=== PATIENT | female | born 1990 | race Hispanic/Latino ===

== ENCOUNTER 2017-11-23 17:40 | Outpatient (CLI) | payer MEDICAID ==
[2017-11-23 18:18] VITALS: BP 117/69
[2017-11-23] MEDS ORDERED: LACTATED RINGERS 1,000 ML IV ONE (18:30)
[2017-11-23] MEDS ORDERED: LACTATED RINGERS 1,000 ML ONE (19:16)
[2017-11-23 19:28] LABS: Bacteria,Urine 1+ /HPF (Negative); Bilirubin,Urine NEG (Negative); Blood,Urine NEG (Negative); Color,Urine Amber (Yellow); Mucus,Urine 3+ /HPF
== END 2017-11-23 21:30 | disposition home or self-care (01) ==
LOC: TRG 17:40
PROVIDERS: ATTEND Obstetrics & Gynecology
DX: O47.02 False labor before 37 completed weeks of gestation, second trimester (principal); Z3A.26 26 weeks gestation of pregnancy
CPT/HCPCS: 59025; 81001; 96360; J7120

== ENCOUNTER 2018-01-27 13:30 | Outpatient (CLI) | payer MEDICAID ==
--- NOTE | 2018-01-27 14:24 | Event Note ---
Date: 01/27/18 Patient presented to triage with c/o over leaking that occurred today. She reports uncontrollable loss of fluid saturating underwear and shorts. She denies any additional leaking since. Spec exam done - no pooling or obvious signs of SROM. Fern negative. Nitrazine negative. Patient has odor of urine. Teaching provided. Advices to keep next appointment and call office with any questions or concerns.
[2018-01-27 14:27] VITALS: BP 114/60
== END 2018-01-27 14:30 | disposition home or self-care (01) ==
LOC: TRG 13:30
PROVIDERS: ATTEND Obstetrics & Gynecology
DX: O47.03 False labor before 37 completed weeks of gestation, third trimester (principal); Z3A.35 35 weeks gestation of pregnancy
CPT/HCPCS: 59025

== ENCOUNTER 2018-02-15 11:28 | Outpatient (CLI) | payer MEDICAID ==
[2018-02-15 12:55] VITALS: BP 125/72
[2018-02-15 13:03] LABS: Amorphous Crystals,Urine Few; Bacteria,Urine 2+ /HPF (Negative); Bilirubin,Urine NEG (Negative); Blood,Urine SM (Negative); Color,Urine Yellow (Yellow); Mucus,Urine FEW /HPF; Protein,Urine <15 mg/dL mg/dL (Negative); Urobilinogen,Urine < 2.0 mg/dL (<2.0)
[2018-02-15 13:06] LABS: Hematocrit 35.9 % (30.3-42.9); Hemoglobin 12.3 gm/dl (10.1-14.3); Mean Corpuscular HGB Conc 34 % (30-34); Mean Corpuscular Hemoglobin 32 pg (28-32); Mean Corpuscular Volume 95 fl (79-97); Platelet Count 269 K/mm3 (140-440); Red Blood Count 3.79 M/mm3 (3.65-5.03); Red Cell Distribution Width 14.6 % (13.2-15.2)
[2018-02-15 13:23] LABS: Alanine Aminotransferase 12 units/L (7-56); Uric Acid 5.3 mg/dL (3.5-7.6)
--- NOTE | 2018-02-15 14:35 | Ultrasound Report ---
ULTRASOUND OB LIMITED History: DARIEL Technique: Transabdominal ultrasound with Doppler interrogation. Gestation: Single Position: Cephalic Amniotic Fluid: Normal DARIEL = 9.4 cm Heart Rate: 135 BPM
== END 2018-02-15 13:50 | disposition home or self-care (01) ==
LOC: TRG 11:28
PROVIDERS: ATTEND Obstetrics & Gynecology
DX: O47.1 False labor at or after 37 completed weeks of gestation (principal); O99.333 Smoking (tobacco) complicating pregnancy, third trimester; Z3A.38 38 weeks gestation of pregnancy
CPT/HCPCS: 36415; 59025; 76815; 81001; 82565; 83615; 84450; 84460; 84550; 85027

== ENCOUNTER 2018-02-22 08:39 | Inpatient (IN) | payer MEDICAID ==
--- NOTE | 2018-02-22 11:59 | Ultrasound Report ---
LIMITED OB ULTRASOUND: Amniotic fluid evaluation. Gestation: Herrera Position: Cephalic Heart Rate: 129 BPM Gestational age 39 weeks 3 days. Comment: Borderline low amniotic fluid level. Minimal change compared to prior exam on 02/15.
[2018-02-22] MEDS ORDERED: BRETHINE SUB-Q PRN (13:04)
[2018-02-22] MEDS ORDERED: MINERAL OIL PO PRN (13:04)
[2018-02-22] MEDS ORDERED: ZOFRAN IV PRN (13:04)
[2018-02-22] MEDS ORDERED: XYLOCAINE 2% INFILTRATI ONE (13:04)
--- NOTE | 2018-02-22 13:12 | History and Physical Report ---
History of Present Illness Date of examination: 02/22/18 Chief complaint: contractions and "leaking fluid" History of present illness: EDC Calculations by LMP: 02/26/2018 Past History : 2 Term Births: 0 Premature Births: 0 Living Children: 0 Para: 0 Mult. Births: 0 Prev : 0 Prev. attempt? 0 Aborta: 2 Elect. Ab: 2 Spont. Ab: 0 Ectopics: 0 # 1 Delivery date: 2005 Weeks Gestation: early Delivery type: EAB Comments: medicallly induced # 2 Delivery date: 07/2013 Weeks Gestation: 8 Delivery type: EAB Past Medical History: Anxiety Drug addiction Depression Past Surgical History: D&C: (2013) Family History Summary: Other family member - Has No Family History of Ovarvian Cancer - Entered On: 06/2018 Other family member - Has No Family History of Colon Cancer - Entered On: 2017 Other family member - Has Family History of Diabetes - Entered On: 07/13/2017 Other family member - Has Family History of CVA or Stroke - Entered On: 2017 Other family member - Has Family History of Coronary Heart Disease - Entered On : 07/13/2017 Other family member - Has Family History Breast Cancer - Entered On: 07/13/2017 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 of genital herpes: no Genetic History Congenital Heart Defect: Mom: no Dad: no Claudia Disease: Mom: no Dad: no Thalassemia Mom: no Dad: no Neural Tube Defect Mom: no Dad: no Down's Syndrome Mom: no Dad: no Kobe-Sachs Mom: no Dad: no Sickle Cell Disease/Trait Mom: no Dad: no Hemophilia Mom: no Dad: no Muscular Dystrophy Mom: no Dad: no Cystic Fibrosis Mom: no Dad: no [place] Chorea Mom: no Dad: no Mental Retardation Mom: no Dad: no Fragile X Mom: no Dad: no Other Genetic/Chromosomal Disorder Mom: no Dad: no Child w/other defect Mom: no Dad: no Current Allergies (reviewed today): No known allergies Past History Past Medical History: other (see HPI) Past Surgical History: other (see HPI) 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 (see HPI) Family/Genetic History: other (see HPI) - Obstetrical History Expected Date of Delivery: 02/26/18 Actual Gestation: 39 Week(s) 3 Day(s) : 3 Para: 0 Hx # Term Pregnancies: 0 Number of Pregnancies: 0 Spontaneous Abortions: 0 Induced : 2 Number of Living Children: 0 Medications and Allergies Allergies Allergy/AdvReac Type Severity Reaction Status Date / Time No Known Allergies Allergy Verified 11/23/17 18:33 Home Medications Medication Instructions Recorded Confirmed Last Taken Type Pnv,Calcium 72/Iron/Folic Acid 1 each PO DAILY 11/23/17 02/22/18 02/21/18 History [Preplus Ca-Fe 27 mg-FA 1 mg Tb] Active Meds: Active Medications Ephedrine Sulfate (Ephedrine Sulfate) 10 mg IV Q2M PRN PRN Reason: Hypotension Ampicillin Sodium (Polycillin/Ns 2 Gm/100 Ml) 2 gm in 100 mls @ 100 mls/hr IV ONCE ONE; Protocol Stop: 02/22/18 14:03 Ampicillin Sodium (Ampicillin/Ns 1 Gm/50 Ml) 1 gm in 50 mls @ 100 mls/hr IV Q4HR MAHENDRA; Protocol Lactated Ringer's (Lactated Ringers) 1,000 mls @ 125 mls/hr IV DIRECT MAHENDRA Oxytocin/Sodium Chloride (Pitocin/Ns 20 Unit/1000ml Drip) 20 units in 1,000 mls @ 125 mls/hr IV DIRECT MAHENDRA Lidocaine (Xylocaine 2%) 20 ml INFILTRATI ONCE ONE Stop: 02/22/18 13:05 Mineral Oil (Mineral Oil) 30 ml PO QHS PRN PRN Reason: Constipation Ondansetron HCl (Zofran) 4 mg IV Q8H PRN PRN Reason: Nausea And Vomiting Terbutaline Sulfate (Brethine) 0.25 mg SUB-Q ONCE PRN PRN Reason: Hyperstimulation/Hypertonicity Review of Systems All systems: negative - Vital Signs Vital signs: Vital Signs Pulse BP 88 136/85 02/22/18 09:26 02/22/18 09:26 Temp Pulse Resp BP Pulse Ox 98 H 110/55 02/22/18 10:56 02/22/18 10:56 - Physical Exam Breasts: Positive: normal Cardiovascular: Regular rate Lungs: Positive: Clear to auscultation, Normal air movement Abdomen: Positive: normal appearance, soft Genitourinary (Female): Positive: normal external genitalia, normal perenium Vulva: both: normal Vagina: Positive: normal moisture Uterus: Positive: normal size, normal contour Anus/Rectum: Positive: normal perianal skin Extremities: Positive: normal Deep Tendon Reflex Grade: Normal +2 - Obstetrical FHR: category 1 Uterine Contraction Monitor Mode: External Cervical Dilatation: 5 Cervical Effacement Percentage: 80 station: -2 Uterine Contraction Frequency (min): 3-5 Uterine Contraction Duration: 50 Uterine Contraction Pattern: Regular Uterine Tone Measurement Phase: Contraction Uterine Contraction Intensity: Mild Results Result Diagrams: 02/22/18 13:05 All other labs normal. Assessment and Plan 28 y/o @ 39+ weeks admitted in labor, SVE now 5cms. DARIEL normal, no signs of obvious SROM. GBS +, will start ampicillin q4h until delivery. has been uncomplicated. She has a hx drug abuse and is in recovery - will use epidural for pain management KWAME. Admission orders in EMR. - Patient Problems (1) GBS (group B Streptococcus carrier), +RV culture, currently Current Visit: Yes Status: Acute (2) Hx of drug abuse Current Visit: Yes Status: Acute (3) Active labor at term Current Visit: Yes Status: Acute (4) 39 weeks gestation of Current Visit: Yes Status: Acute
[2018-02-22] MEDS ORDERED: POLYCILLIN/NS 2 GM/100 ML 2 GM/100 ML BAG IV ONE (13:30)
[2018-02-22 13:31] LABS: Hematocrit 33.7 % (30.3-42.9); Hemoglobin 11.7 gm/dl (10.1-14.3); Mean Corpuscular HGB Conc 35 % (30-34); Mean Corpuscular Hemoglobin 32 pg (28-32); Mean Corpuscular Volume 93 fl (79-97); Platelet Count 251 K/mm3 (140-440); Red Blood Count 3.65 M/mm3 (3.65-5.03); Red Cell Distribution Width 14.5 % (13.2-15.2)
[2018-02-22] MEDS ORDERED: PITOCin/NS 20 UNIT/1000ML DRIP 20 UNITS/1,000 ML BAG IV SCH ×2 (14:00→23:00)
[2018-02-22] MEDS: LACTATED RINGERS 1,000 ML IV SCH ×2 (15:10→20:02)
[2018-02-22] MEDS ORDERED: PITOCin/NS 30 UNIT/500ML 30 UNITS/500 ML BAG IV SCH (17:00)
[2018-02-22] MEDS ORDERED: AMPICILLIN/NS 1 GM/50 ML 1 GM/50 ML BAG IV SCH (17:06)
[2018-02-22] MEDS ORDERED: NARCAN 2 MG/2 ML IV PRN (17:26)
--- NOTE | 2018-02-22 17:26 | Anesthesia Consultation ---
Anesthesia Consult and Med Hx Date of service: 02/22/18 - Airway Anesthetic Teeth Evaluation: Good ROM Head & Neck: Adequate Mental/Hyoid Distance: Adequate Mallampati Class: Class II Intubation Access Assessment: Good - Pulmonary Exam CTA: Yes - Cardiac Exam Cardiac Exam: No Murmur - Pre-Operative Health Status ASA Pre-Surgery Classification: ASA2 Proposed Anesthetic Plan: Epidural - Pulmonary Hx Asthma: No COPD: No Hx Pneumonia: No - Cardiovascular System Hx Hypertension: No - Central Nervous System Hx Seizures: No Hx Psychiatric Problems: Yes (HX OF DEPRESSION & ANXIETY) - Endocrine Hx Renal Disease: No Hx End Stage Renal Disease: No Hx Hypothyroidism: No Hx Hyperthyroidism: No - Hematic Hx Anemia: No Hx Sickle Cell Disease: No - Other Systems Hx Alcohol Use: No
[2018-02-22] MEDS: PITOCin/NS 30 UNIT/500ML 30 UNITS/500 ML BAG IV SCH ×2 (18:25→20:04)
[2018-02-22] MEDS ORDERED: fentaNYL-BUPIV 2 MCG/ML-0.125% 200 MCG/100 ML BAG EPIDURAL SCH (18:30)
--- NOTE | 2018-02-22 21:04 | Progress Note ---
Assessment and Plan Pitocin off d/t variable decelerations, continue present management - Patient Problems (1) 39 weeks gestation of Current Visit: Yes Status: Acute (2) Active labor at term Current Visit: Yes Status: Acute (3) Anxiety Current Visit: Yes Status: Acute (4) BMI 40.0-44.9, adult Current Visit: Yes Status: Acute (5) Depressed Current Visit: Yes Status: Acute (6) GBS (group B Streptococcus carrier), +RV culture, currently Current Visit: Yes Status: Acute (7) Hx of drug abuse Current Visit: Yes Status: Acute Subjective - Subjective Date of service: 02/22/18 Principal diagnosis: IUP@39 weeks, labor Patient reports: no new complaints Objective - Vital Signs Vital Signs: Vital Signs - 12hr 02/22/18 02/22/18 02/22/18 09:26 09:55 10:26 Temperature Pulse Rate 88 93 H 93 H Respiratory Rate Blood Pressure 136/85 122/75 124/71 Blood Pressure [Right] 02/22/18 02/22/18 02/22/18 10:56 14:52 15:19 Temperature 97.1 F L Pulse Rate 98 H 82 82 Respiratory 16 Rate Blood Pressure 110/55 121/73 Blood Pressure 130/82 [Right] 02/22/18 02/22/18 02/22/18 15:20 15:22 15:52 Temperature Pulse Rate 97 H 93 H 88 Respiratory Rate Blood Pressure 130/82 128/77 127/75 Blood Pressure [Right] 02/22/18 02/22/18 02/22/18 16:22 16:53 17:11 Temperature Pulse Rate 100 H 98 H 113 H Respiratory Rate Blood Pressure 124/78 130/69 129/67 Blood Pressure [Right] 02/22/18 02/22/18 02/22/18 17:24 17:54 18:23 Temperature Pulse Rate 120 H 81 99 H Respiratory Rate Blood Pressure 123/65 124/62 125/58 Blood Pressure [Right] 02/22/18 02/22/18 02/22/18 18:53 19:24 19:53 Temperature Pulse Rate 95 H 101 H 100 H Respiratory Rate Blood Pressure 123/60 118/70 117/60 Blood Pressure [Right] 02/22/18 02/22/18 02/22/18 19:58 20:22 20:52 Temperature 98.1 F Pulse Rate 100 H 122 H 127 H Respiratory 18 Rate Blood Pressure 139/80 135/73 Blood Pressure 117/60 [Right] - Exam Breasts: deferred Cardiovascular: Regular rate Lungs: Normal air movement Abdomen: Present: normal appearance. Absent: tenderness Vulva: both: normal Uterus: Present: fundal height above umbilicus FHR: category 1 Uterine Contraction Monitor Mode: External Cervical Dilatation: 9.5 Cervical Effacement Percentage: 100 station: -1 Uterine Contraction Frequency (min): 2-3 Uterine Contraction Pattern: Regular Extremities: normal - Labs Labs: Abnormal Labs 02/22/18 13:05 WBC 14.2 H MCHC 35 H Laboratory Results - last 24 hr 02/22/18 02/22/18 13:05 13:05 WBC 14.2 H RBC 3.65 Hgb 11.7 Hct 33.7 MCV 93 MCH 32 MCHC 35 H RDW 14.5 Plt Count 251 Blood Type O POSITIVE Antibody Screen Negative
[2018-02-22] MEDS ORDERED: PEPCID IV ONE (22:42)
[2018-02-22] MEDS ORDERED: REGLAN IV ONE (22:42)
[2018-02-22] MEDS ORDERED: BICITRA PO ONE (22:42)
--- NOTE | 2018-02-22 22:51 | Progress Note ---
Assessment and Plan Variable decelerations and cervical swelling, Options reviewed,, patient desires to proceed with c/s. Consents reviewed and signed - Patient Problems (1) 39 weeks gestation of Current Visit: Yes Status: Acute (2) Active labor at term Current Visit: Yes Status: Acute (3) Anxiety Current Visit: Yes Status: Acute (4) BMI 40.0-44.9, adult Current Visit: Yes Status: Acute (5) Depressed Current Visit: Yes Status: Acute (6) GBS (group B Streptococcus carrier), +RV culture, currently Current Visit: Yes Status: Acute (7) Hx of drug abuse Current Visit: Yes Status: Acute Subjective - Subjective Date of service: 02/22/18 Principal diagnosis: IUP@39 weeks, labor Interval history: No cervical change. Patient reports: new complaints, contractions Objective - Vital Signs Vital Signs: Vital Signs - 12hr 02/22/18 02/22/18 02/22/18 10:56 14:52 15:19 Temperature 97.1 F L Pulse Rate 98 H 82 82 Respiratory 16 Rate Blood Pressure 110/55 121/73 Blood Pressure 130/82 [Right] O2 Sat by Pulse Oximetry 02/22/18 02/22/18 02/22/18 15:20 15:22 15:52 Temperature Pulse Rate 97 H 93 H 88 Respiratory Rate Blood Pressure 130/82 128/77 127/75 Blood Pressure [Right] O2 Sat by Pulse Oximetry 02/22/18 02/22/18 02/22/18 16:22 16:53 17:11 Temperature Pulse Rate 100 H 98 H 113 H Respiratory Rate Blood Pressure 124/78 130/69 129/67 Blood Pressure [Right] O2 Sat by Pulse Oximetry 02/22/18 02/22/18 02/22/18 17:24 17:54 18:23 Temperature Pulse Rate 120 H 81 99 H Respiratory Rate Blood Pressure 123/65 124/62 125/58 Blood Pressure [Right] O2 Sat by Pulse Oximetry 02/22/18 02/22/18 02/22/18 18:53 19:24 19:53 Temperature Pulse Rate 95 H 101 H 100 H Respiratory Rate Blood Pressure 123/60 118/70 117/60 Blood Pressure [Right] O2 Sat by Pulse Oximetry 02/22/18 02/22/18 02/22/18 19:58 20:22 20:52 Temperature 98.1 F Pulse Rate 100 H 122 H 127 H Respiratory 18 Rate Blood Pressure 139/80 135/73 Blood Pressure 117/60 [Right] O2 Sat by Pulse Oximetry 02/22/18 02/22/18 02/22/18 21:23 21:53 22:23 Temperature Pulse Rate 121 H 120 H 130 H Respiratory Rate Blood Pressure 129/74 131/67 127/58 Blood Pressure [Right] O2 Sat by Pulse Oximetry 02/22/18 02/22/18 02/22/18 22:35 22:40 22:41 Temperature Pulse Rate 132 H 123 H Respiratory Rate Blood Pressure Blood Pressure [Right] O2 Sat by Pulse 98 93 83 L Oximetry - Exam Breasts: deferred Lungs: Normal air movement Abdomen: Present: normal appearance, other (obese) Vulva: both: normal Uterus: Present: fundal height above umbilicus FHR: category 2 Cervical Dilatation: 7.5 (cervix swelling) Cervical Effacement Percentage: 70 station: -1 Uterine Contraction Pattern: Irregular - Labs Labs: Abnormal Labs 02/22/18 13:05 WBC 14.2 H MCHC 35 H Laboratory Results - last 24 hr 02/22/18 02/22/18 13:05 13:05 WBC 14.2 H RBC 3.65 Hgb 11.7 Hct 33.7 MCV 93 MCH 32 MCHC 35 H RDW 14.5 Plt Count 251 Blood Type O POSITIVE Antibody Screen Negative
[2018-02-22] MEDS ORDERED: REGLAN ONE (22:54)
[2018-02-22] MEDS ORDERED: ANCEF/STERILE WATER 2 GM/20 ML 2 GM/20 ML SYRINGE IV NR (23:00)
[2018-02-22] MEDS ORDERED: LACTATED RINGERS 1,000 ML IV SCH (23:00)
[2018-02-22] MEDS ORDERED: MORPHINE ONE ×2 (23:42→23:43)
[2018-02-22] MEDS ORDERED: XYLOCAINE MPF 2% ONE ×4 (23:43)
[2018-02-22] MEDS ORDERED: TORADOL ONE (23:43)
[2018-02-22] MEDS ORDERED: VERSED ONE (23:46)
[2018-02-23] MEDS ORDERED: ZOFRAN IV PRN ×2 (00:41→02:33)
[2018-02-23] MEDS ORDERED: DILAUDID IV PRN ×2 (00:41)
[2018-02-23] MEDS ORDERED: PHENERGAN PR PRN ×2 (00:41→02:33)
[2018-02-23] MEDS ORDERED: NARCAN 0.4 MG/1 ML IV PRN ×2 (00:41→02:33)
[2018-02-23] MEDS ORDERED: PHENERGAN PO PRN (00:41)
--- NOTE | 2018-02-23 00:41 | Post Anesthesia Evaluation ---
- Post Anesthesia Evaluation Patient Participated: Yes Airway Patent: Yes Stable Respiratory Function: Yes Nausea/Vomiting: No Temp > 96.8F: Yes Pain Manageable: Yes Adequeate Hydration: Yes Anesthesia Complications: No
--- NOTE | 2018-02-23 00:53 | Operative Report ---
Operative Report Operative Report: Date: 02/22/2018 Preoperative diagnosis: 1. Intrauterine at 39 weeks 2. Failure to dilate 3. Group beta strep carrier 4. Body mass index 42 Postoperative diagnosis: 1. Intrauterine at 39 weeks 2. Failure to dilate 3. Group beta strep carrier 4. Body mass index 42 Procedure: Low uterine transverse incision for delivery Surgeon: Navya Rivers MD Network Control Operator: Abida Sanz CST Anesthesia: Epidural Anesthesiologist: Saritha Bennett M.D. Estimated blood loss: 800 mL Urine out: [] mL Findings: Live born male . Weight 7 lbs. 14 oz. Apgars 8 at 1 minute and 9 at 5 minutes. Uterus grossly normal, tubes grossly normal, ovaries grossly normal. Procedure: After risk, benefits, complications, consequences and alternatives for this procedure were discussed with patient and consents were reviewed and signed, she was taken to the OR where epidural anesthesia was bolused. She was then placed in the left lateral tilt position, and prepped and draped in the usual sterile fashion. Timeout was performed, and an appropriate level of anesthesia was noted, a Pfannenstiel incision was made and extended to the fascia which was incised and extended in the lateral directions. The overlying fascia was sharply dissected away from the underlying rectus muscles in the superior and inferior directions. The midline was entered bluntly. The vesicouterine fold was incised and with blunt dissection the bladder flap was created. A transverse incision was made in the lower uterine segment and extended in superiolateral direction with finger fractionation. Clear fluid was noted. The infant was delivered from cephalic ROT position. Mouth and nose were bulb suctioned. Spontaneous cry and excellent tone were noted. Cord was doubly clamped and cut. The infant was given to /resuscitation team present. The placenta was manually extracted. The uterus was then exteriorized and cleared of any further products of conception or placental tissue. The incision was reapproximated using 0 Vicryl in a running interlocking stitch. Grossly normal uterus, tubes and ovaries were noted. Once hemostasis was noted, the uterus was allowed back into the pelvic cavity. The pelvis was irrigated with warm normal saline. Again hemostasis was noted . Surgicel applied for further hemostasis. Interceed was then placed to prevent adhesions. Then attention was turned to the rectus muscles. The rectus muscles reapproximated using 0 Vicryl in a simple interrupted stitch x 4. Once hemostasis was noted, the fascia was reapproximated using 0 Vicryl running stitch fashion. Once hemostasis was noted skin incision was reapproximated using 4-0 Vicryl on a Jorge L needle in a subcuticular manner. Counts were correct 3. Patient tolerated procedure well state recovery room in stable condition.
[2018-02-23] MEDS ORDERED: SODIUM CHLORIDE FLUSH SYRINGE 10 ML IV NR ×2 (01:00→02:33)
[2018-02-23] MEDS ORDERED: fentaNYL-BUPIV 2 MCG/ML-0.125% 200 MCG/100 ML BAG EPIDURAL SCH (01:00)
[2018-02-23] MEDS ORDERED: MYLICON PO PRN (02:33)
[2018-02-23] MEDS ORDERED: PITOCin/NS 20 UNIT/1000ML DRIP 20 UNITS/1,000 ML BAG IV SCH (02:33)
[2018-02-23] MEDS ORDERED: D5LR 1,000 ML IV SCH (02:33)
[2018-02-23] MEDS ORDERED: MORPHINE IV PRN (02:33)
[2018-02-23] MEDS ORDERED: TYLENOL PO PRN (02:33)
[2018-02-23] MEDS ORDERED: TYLENOL PR PRN (02:33)
[2018-02-23] MEDS ORDERED: TUCKS PAD TP PRN (02:33)
[2018-02-23] MEDS ORDERED: LANSINOH TP PRN (02:33)
[2018-02-23] MEDS ORDERED: MILK OF MAGNESIA PO PRN (02:33)
[2018-02-23] MEDS: TORADOL IV PRN ×3 (04:52→19:38)
[2018-02-23] MEDS: ANCEF/NS 1 GM/50 ML 1 GM/50 ML BAG IV SCH ×2 (09:07→16:37)
--- NOTE | 2018-02-23 10:48 | Progress Note ---
Assessment and Plan patient resting with family at BS, VSSAF, H&H ordered for 1230 today. Buck to BSB - output adequate. Pain well controlled. Pt reports feeling sad because baby has been taken to NICU. reassured patient will be able to go to NICU via WC soon. Encouraged use of breast pump q3h x 20 minutes on both breast. Advance diet and activity as tolerated. Continue postop pathway. - Patient Problems (1) delivery delivered Current Visit: Yes Status: Acute Subjective - Subjective Date of service: 02/23/18 Principal diagnosis: postop day #0, < 12h post delivery Interval history: EDC Calculations by LMP: 02/26/2018 Past History : 2 Term Births: 0 Premature Births: 0 Living Children: 0 Para: 0 Mult. Births: 0 Prev : 0 Prev. attempt? 0 Aborta: 2 Elect. Ab: 2 Spont. Ab: 0 Ectopics: 0 # 1 Delivery date: 2004 Weeks Gestation: early Delivery type: EAB Comments: medicallly induced # 2 Delivery date: 07/2013 Weeks Gestation: 8 Delivery type: EAB Past Medical History: Anxiety Drug addiction Depression Past Surgical History: D&C: (2013) Family History Summary: Other family member - Has No Family History of Ovarvian Cancer - Entered On: 06/2018 Other family member - Has No Family History of Colon Cancer - Entered On: 2017 Other family member - Has Family History of Diabetes - Entered On: 07/13/2017 Other family member - Has Family History of CVA or Stroke - Entered On: 2017 Other family member - Has Family History of Coronary Heart Disease - Entered On : 07/13/2017 Other family member - Has Family History Breast Cancer - Entered On: 07/13/2017 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 of genital herpes: no Genetic History Congenital Heart Defect: Mom: no Dad: no Claudia Disease: Mom: no Dad: no Thalassemia Mom: no Dad: no Neural Tube Defect Mom: no Dad: no Down's Syndrome Mom: no Dad: no Kobe-Sachs Mom: no Dad: no Sickle Cell Disease/Trait Mom: no Dad: no Hemophilia Mom: no Dad: no Muscular Dystrophy Mom: no Dad: no Cystic Fibrosis Mom: no Dad: no [place] Chorea Mom: no Dad: no Mental Retardation Mom: no Dad: no Fragile X Mom: no Dad: no Other Genetic/Chromosomal Disorder Mom: no Dad: no Child w/other defect Mom: no Dad: no Current Allergies (reviewed today): No known allergies Patient reports: pain well controlled, no flatus, no nauseated : in NICU Objective - Vital Signs Latest vital signs: Vital Signs Temp Pulse Resp BP BP Pulse Ox 02/23/18 07:00 98.7 F 79 16 103/65 02/23/18 04:00 98.7 F 69 16 117/79 02/23/18 02:30 98.6 F 79 18 123/69 02/23/18 01:40 100.0 F H 96 H 26 H 114/69 98 02/23/18 01:25 104 H 23 124/67 98 02/23/18 01:10 104 H 20 120/73 97 02/23/18 00:55 91 H 19 124/65 99 02/23/18 00:50 87 23 120/61 100 02/23/18 00:45 94 H 18 112/59 99 02/23/18 00:39 99.5 F 100 H 22 114/61 100 02/22/18 22:41 83 L 02/22/18 22:40 123 H 93 02/22/18 22:35 132 H 98 02/22/18 22:23 130 H 127/58 02/22/18 21:53 120 H 131/67 02/22/18 21:23 121 H 129/74 02/22/18 20:52 127 H 135/73 02/22/18 20:22 122 H 139/80 02/22/18 19:58 98.1 F 100 H 18 117/60 02/22/18 19:53 100 H 117/60 02/22/18 19:24 101 H 118/70 02/22/18 18:53 95 H 123/60 02/22/18 18:23 99 H 125/58 02/22/18 17:54 81 124/62 02/22/18 17:24 120 H 123/65 02/22/18 17:11 113 H 129/67 02/22/18 16:53 98 H 130/69 02/22/18 16:22 100 H 124/78 02/22/18 15:52 88 127/75 02/22/18 15:22 93 H 128/77 02/22/18 15:20 97 H 130/82 02/22/18 15:19 97.1 F L 82 16 130/82 02/22/18 14:52 82 121/73 02/22/18 10:56 98 H 110/55 Intake and Output 02/22/18 02/23/18 02/23/18 23:59 07:59 15:59 Intake Total 611.333 Output Total 400 Balance 611.333 -400 Intake: IV 611.333 Lactated Ringers 1,000 ml 608.333 @ 125 mls/hr IV DIRECT MAHENDRA Rx#:[id number] PITOCin/NS 30 UNIT/500ML 3 30 units In 500 ml @ 4 MILLIUNITS/MIN 4 mls/hr IV TITR MAHENDRA Rx#:[id number] Output: Urine 400 Indwelling Catheter 400 Other: Total, Output Amount 400 Estimated Blood Loss 800 - Exam Breasts: Present: normal, (pumping) Cardiovascular: Present: Regular rate Lungs: Present: Clear to auscultation, Normal air movement Abdomen: Present: normal appearance, soft Vulva: both: normal Uterus: Present: normal, firm, fundal height at umbilicus Extremities: Present: normal Deep Tendon Reflex Grade: Normal +2 Incision: Present: normal, dry, dressed - Labs Labs: Abnormal lab results 02/22/18 Range/Units 13:05 WBC 14.2 H (4.5-11.0) K/mm3 MCHC 35 H (30-34) %
--- NOTE | 2018-02-23 11:03 | Progress Note ---
Subjective Date of service: 02/23/18 Principal diagnosis: postop day #0, < 12h post delivery Interval history: Patient is awake and alert. She denies anesthesia related complications. Objective - Constitutional Vitals: Vital Signs - 12hr 02/23/18 02/23/18 02/23/18 00:39 00:45 00:50 Temperature 99.5 F Pulse Rate 100 H 94 H 87 Respiratory 22 18 23 Rate Blood Pressure 114/61 112/59 120/61 Blood Pressure [Right] O2 Sat by Pulse 100 99 100 Oximetry 02/23/18 02/23/18 02/23/18 00:55 01:10 01:25 Temperature Pulse Rate 91 H 104 H 104 H Respiratory 19 20 23 Rate Blood Pressure 124/65 120/73 124/67 Blood Pressure [Right] O2 Sat by Pulse 99 97 98 Oximetry 02/23/18 02/23/18 02/23/18 01:40 02:30 04:00 Temperature 100.0 F H 98.6 F 98.7 F Pulse Rate 96 H 79 69 Respiratory 26 H 18 16 Rate Blood Pressure 114/69 Blood Pressure 123/69 117/79 [Right] O2 Sat by Pulse 98 Oximetry 02/23/18 07:00 Temperature 98.7 F Pulse Rate 79 Respiratory 16 Rate Blood Pressure Blood Pressure 103/65 [Right] O2 Sat by Pulse Oximetry - Labs CBC & Chem 7: 02/22/18 13:05 Labs: Abnormal lab results 02/22/18 Range/Units 13:05 WBC 14.2 H (4.5-11.0) K/mm3 MCHC 35 H (30-34) %
[2018-02-23 13:48] LABS: Hematocrit 25.2 % (30.3-42.9); Hemoglobin 8.8 gm/dl (10.1-14.3)
[2018-02-23] MEDS: COLACE PO SCH (21:50)
[2018-02-23] MEDS: FEOSOL PO SCH (21:50)
[2018-02-24] MEDS: PERCOCET 5/325 PO PRN ×3 (03:11→20:23)
[2018-02-24] MEDS ORDERED: BOOSTRIX IM ONE (06:00)
[2018-02-24] MEDS: FEOSOL PO SCH ×2 (10:57→21:37)
[2018-02-24] MEDS: COLACE PO SCH ×2 (11:00→21:36)
--- NOTE | 2018-02-24 13:51 | Progress Note ---
Assessment and Plan patient doing well, walking to NICU several times a day to [facility] with infant. Lochia scant, fundus firm, VSSAF, H&H 8.8/25.2 - anemia from blood loss, acute - Asymptomatic. FE started. pt very anxious re: pain with dressing removal - rn to do it in shower after lunch. encouraged increase PO hydration and continued pumping. Suggested patient pump in NICU near to help stimulate let down. continue postop pathway. - Patient Problems (1) delivery delivered Current Visit: Yes Status: Acute Subjective - Subjective Date of service: 02/24/18 Principal diagnosis: postop day #1 s/p primary c/s Interval history: EDC Calculations by LMP: 02/26/2018 Past History : 2 Term Births: 0 Premature Births: 0 Living Children: 0 Para: 0 Mult. Births: 0 Prev : 0 Prev. attempt? 0 Aborta: 2 Elect. Ab: 2 Spont. Ab: 0 Ectopics: 0 # 1 Delivery date: 2004 Weeks Gestation: early Delivery type: EAB Comments: medicallly induced # 2 Delivery date: 07/2013 Weeks Gestation: 8 Delivery type: EAB Past Medical History: Anxiety Drug addiction Depression Past Surgical History: D&C: (2013) Family History Summary: Other family member - Has No Family History of Ovarvian Cancer - Entered On: 06/2018 Other family member - Has No Family History of Colon Cancer - Entered On: 2017 Other family member - Has Family History of Diabetes - Entered On: 07/13/2017 Other family member - Has Family History of CVA or Stroke - Entered On: 2017 Other family member - Has Family History of Coronary Heart Disease - Entered On : 07/13/2017 Other family member - Has Family History Breast Cancer - Entered On: 07/13/2017 Social History: Patient is single [employer] Risk Factors: Smoked Tobacco Use: Former smoker Cigarettes: Yes Years smoked: 11 Year quit: 2017 Years Since Last Quit: 1 Counseled to quit/cut down: yes Drug use: no Alcohol use: no Dietary Counseling: pn yes Past Medical History Surgery (Non-line supply): D&C: (2013) Abnormal PAP: negative Uterine Anomaly: negative Social Hx: Patient is single [employer] Consult[employer] Infection History Hx of STD: none Partner hx. of genital herpes: no Genetic History Congenital Heart Defect: Mom: no Dad: no Claudia Disease: Mom: no Dad: no Thalassemia Mom: no Dad: no Neural Tube Defect Mom: no Dad: no Down's Syndrome Mom: no Dad: no Kobe-Sachs Mom: no Dad: no Sickle Cell Disease/Trait Mom: no Dad: no Hemophilia Mom: no Dad: no Muscular Dystrophy Mom: no Dad: no Cystic Fibrosis Mom: no Dad: no [place] Chorea Mom: no Dad: no Mental Retardation Mom: no Dad: no Fragile X Mom: no Dad: no Other Genetic/Chromosomal Disorder Mom: no Dad: no Child w/other defect Mom: no Dad: no Current Allergies (reviewed today): No known allergies Patient reports: appetite normal, voiding normally, pain well controlled, flatus , ambulating normally, no dizzy ambulation, no nauseated : in NICU (mother pumping breasts) Objective - Vital Signs Latest vital signs: Vital Signs Temp Pulse Resp BP BP Pulse Ox 02/24/18 03:11 18 02/24/18 00:00 98.4 F 91 H 18 117/64 02/23/18 19:38 18 02/23/18 15:49 98.3 F 99 H 18 133/74 96 Intake and Output 02/23/18 02/24/18 02/24/18 23:59 07:59 15:59 Intake Total 240 Output Total 900 Balance -900 240 Intake: Oral 240 Output: Urine 900 Void 900 Other: Total, Intake Amount 240 Total, Output Amount 900 # Voids Void 1 1 - Exam Breasts: Present: normal Cardiovascular: Present: Regular rate Lungs: Present: Clear to auscultation, Normal air movement Abdomen: Present: normal appearance, soft Vulva: both: normal Uterus: Present: normal, firm, fundal height at umbilicus Extremities: Present: normal Deep Tendon Reflex Grade: Normal +2 Incision: Present: normal, dry, dressed (pt getting into shower - rn will remove in shower. ) - Labs Labs: Abnormal lab results 02/23/18 Range/Units 13:23 Hgb 8.8 L (10.1-14.3) gm/dl Hct 25.2 L D (30.3-42.9) %
[2018-02-24] MEDS: MOTRIN PO PRN ×2 (15:07→21:37)
[2018-02-25] MEDS: MOTRIN PO PRN ×2 (03:54→18:24)
[2018-02-25] MEDS: PERCOCET 5/325 PO PRN ×3 (03:55→22:20)
--- NOTE | 2018-02-25 06:28 | Progress Note ---
Assessment and Plan - Patient Problems (1) delivery delivered Onset Date: ~02/23/18 Current Visit: Yes Status: Acute Plan to address problem: Pt c/o swelling up to her hip on both legs "they feel stiff." Pt has Full ROM; no redness; negative Ed's. Will try RAMYA stockings. Encouraged ambulation, hydration, avoid salt. VSS FF below umb Lochia scant Incision D&I H&H 02/23 Pt is w/o s/sx of anemia. Pt is stable s/p section with exception of swelling in legs. P: continue pathway Advance as tolerated. Fit for TEDs with AM care Subjective - Subjective Date of service: 02/25/18 (pt c/o swelling in legs) Principal diagnosis: postop day #2 s/p primary c/s Patient reports: appetite normal, voiding normally, pain well controlled, ambulating normally [place]: in NICU Objective - Vital Signs Latest vital signs: Vital Signs Temp Pulse Resp BP 02/25/18 03:55 18 02/25/18 03:54 18 02/25/18 00:00 98.6 F 69 16 114/78 02/24/18 21:37 18 02/24/18 20:23 18 02/24/18 15:35 97.7 F 105 H 18 118/76 02/24/18 08:45 97.8 F 92 H 18 121/76 Intake and Output 02/24/18 02/24/18 02/25/18 14:59 22:59 06:59 Intake Total 300 Balance 300 Intake: Intake, Free Water 300 Other: # Voids Void 1 - Exam Breasts: Present: normal Lungs: Present: Clear to auscultation Abdomen: Present: normal appearance, soft, normal bowel sounds Uterus: Present: normal Extremities: Present: normal, edema (+Pulses; no redness; negative Homans) Deep Tendon Reflex Grade: Normal +2 Incision: Present: normal, dry, intact
[2018-02-25] MEDS: COLACE PO SCH ×2 (13:42→22:20)
[2018-02-25] MEDS: FEOSOL PO SCH ×2 (13:42→22:20)
--- NOTE | 2018-02-26 07:31 | Discharge Summary ---
Providers - Providers Date of Admission: 02/22/18 08:40 Date of discharge: 02/26/18 (pt agrees with d/c ) Attending physician: SERA KNUTSON 02/23/18 02:33 Consult to Legal Biller [CONS] Routine Reason For Exam: Primary care physician: SERA KNUTSON Hospitalization Reason for admission: induction of labor Delivery: Procedure: primary low transverse Episiotomy: none Laceration: none Incision: normal, dry, intact Other procedures: none complications: none Discharge diagnosis: IUP at term delivered [place] baby: male Hospital course: uncomplicated section due to failure to dilate Pt voicing concerns to me this morning about not using rx narcotics "I want to avoid the temptation." Encouraged her to use the Motrin round the clock. Relaxation and other techniques of pain relief discussed. Offered MH interventions Pt declined at this time. I will send her the referrals for her to use. Also offered SSRI for depression, she also declines this at this time. Pt states she has a good support system. VSS FF below umb Lochia scant Incision D&I H&H stable no s/sx of anemia. Stable s/p section. P: d/c today with instructions RTO 1 week postop care. Condition at discharge: Good Disposition: DC-01 TO HOME OR SELFCARE - Discharge Diagnoses (1) delivery delivered Status: Acute Comment: RTO 1 week postop check Plan - Discharge Medications Prescriptions: Ibuprofen [Motrin 800 MG tab] 800 mg PO TID PRN #30 tablet PRN Reason: Pain Lidocain2.5%/Prilocai2.5% [Emla] 5 gm TP ONCE #1 tube oxyCODONE /ACETAMINOPHEN [Percocet 5/325 mg] 1 - 2 tab PO Q4HR PRN #30 tablet PRN Reason: Pain - Provider Discharge Summary Activity: routine, no sex for 6 weeks, no heavy lifting 4 weeks, no strenuous exercise Diet: routine Instructions: routine Additional instructions: [] Smoking cessation referral if applicable(refer to patient education folder for contact #) [] Refer to [facility] Booklet Call your doctor immediately for: * Fever > 100.5 * Heavy vaginal bleeding ( >1 pad per hour) * Severe persistent headache * Shortness of breath * Reddened, hot, painful area to leg or breast * Drainage or odor from incision. * Keep incision clean and dry at all times and follow doctor's instructions regarding bathing/showering - Follow up plan Follow up: SERA KNUTSON MD [Primary Care Provider] - 7 Days (Congratulations! Please call [phone] to schedule your postoperative visit in 1 week. Take medication as discussed. Call with any concerns.)
[2018-02-26] MEDS: PERCOCET 5/325 PO PRN ×2 (08:24→19:10)
[2018-02-26] MEDS: MOTRIN PO PRN ×2 (08:24→17:50)
[2018-02-26 10:38] VITALS: BP 123/70
== END 2018-02-26 18:15 | disposition home or self-care (01) | DRG 765 ==
LOC: TRG 08:39 → LD 08:40 → OB 02-23 02:16
PROVIDERS: ADMIT Obstetrics & Gynecology; ATTEND Obstetrics & Gynecology
PROC: 10D00Z1 Extraction of Products of Conception, Low, Open Approach (ICD-10-PCS; principal; 2018-02-22)
DX: O99.344 Other mental disorders complicating childbirth (principal); O99.824 Streptococcus B carrier state complicating childbirth; D62 Acute posthemorrhagic anemia; O99.03 Anemia complicating the puerperium; F32.9 Major depressive disorder, single episode, unspecified; F41.9 Anxiety disorder, unspecified; O76 Abnormality in fetal heart rate and rhythm complicating labor and delivery; Z3A.39 39 weeks gestation of pregnancy; Z37.0 Single live birth; Z71.3 Dietary counseling and surveillance; Z83.3 Family history of diabetes mellitus; Z82.3 Family history of stroke; Z82.49 Family history of ischemic heart disease and other diseases of the circulatory system; Z80.3 Family history of malignant neoplasm of breast; Z87.891 Personal history of nicotine dependence
CPT/HCPCS: 36415; 76815; 85014; 85018; 85027; 86592; 86850; 86900; 86901; 90715; 99211; C1765; G0463; J0290; J0690; J1885; J2250; J2270; J2590; J2765; J7120; J7121